=== PATIENT | female | born 1990 | race American Indian/Alaskan Native ===

== ENCOUNTER 2019-04-16 12:01 | Emergency (ER) | payer MEDICAID ==
--- NOTE | 2019-04-16 12:32 | Emergency Department Report ---
Chief Complaint: Abdominal Pain Stated Complaint: ABD PAIN/CRAMPS Time Seen by Provider: 04/16/19 12:27 - HPI History of Present Illness: This is a 29 y.o. F that presents to the ER with abdominal pain x 2 days. LMP 03/09/19 A1 miscarriage Patient is unsure of gestation. 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 - Exam Vital Signs: Vital Signs 04/16/19 12:27 Temperature 98.6 F Pulse Rate 96 H Respiratory 16 Rate Blood Pressure 117/62 [Right] O2 Sat by Pulse 100 Oximetry MSE screening note: Focused history and physical exam performed. Due to findings the following was ordered: ED Disposition for MSE Condition: Stable Instructions: Abdominal Pain (ED)
[2019-04-16 13:16] LABS: Bacteria,Urine 2+ /HPF (Negative); Bilirubin,Urine NEG (Negative); Blood,Urine NEG (Negative); Color,Urine Yellow (Yellow); Mucus,Urine FEW /HPF; Protein,Urine <15 mg/dL mg/dL (Negative); Urobilinogen,Urine < 2.0 mg/dL (<2.0)
--- NOTE | 2019-04-16 15:38 | Emergency Department Report ---
ED Female HPI - General Chief complaint: Abdominal Pain Stated complaint: ABD PAIN/CRAMPS Time Seen by Provider: 04/16/19 12:27 Source: patient Mode of arrival: Ambulatory Limitations: No Limitations - History of Present Illness Initial comments: This is a 29 year old and presents to ED complaining of suprapubic pain 2 days. Patient states that she is about 5 weeks gestation with her last culture. Of 03/09/2019. Patient states she has not been to INSTRUCTIONAL SUPPORT ASSISTANT yet she has not had an appointment. She denies vaginal bleeding, vaginal discharge, dysuria, fever, nausea vomiting. - Related Data Previous Rx's Medication Instructions Recorded Last Taken Type Fluconazole [Diflucan TAB] 150 mg PO ONCE #1 tablet 02/24/16 Unknown Rx Sulfamethoxazole/Trimethoprim 1 each PO BID #20 tablet 02/24/16 Unknown Rx [Bactrim DS TAB] Nitrofurantoin [place]/M-Cryst 100 mg PO Q12HR #14 capsule 04/16/19 Unknown Rx [Macrobid CAP] Allergies Allergy/AdvReac Type Severity Reaction Status Date / Time No Known Allergies Allergy Verified 04/16/19 12:02 ED Review of Systems ROS: Stated complaint: ABD PAIN/CRAMPS Other details as noted in HPI Comment: All other systems reviewed and negative ED Past Medical Hx - Past Medical History Hx Hypertension: No Hx Congestive Heart Failure: No Hx Diabetes: No Hx Deep Vein Thrombosis: No Hx Renal Disease: No Hx Sickle Cell Disease: No Hx Seizures: No Hx Asthma: No Hx COPD: No Hx HIV: No - Surgical History Additional Surgical History: - Social History Smoking Status: Never Smoker Substance Use Type: None - Medications Home Medications: Home Medications Medication Instructions Recorded Confirmed Last Taken Type Fluconazole [Diflucan TAB] 150 mg PO ONCE #1 tablet 02/24/16 Unknown Rx Sulfamethoxazole/Trimethoprim 1 each PO BID #20 tablet 02/24/16 Unknown Rx [Bactrim DS TAB] Nitrofurantoin [place]/M-Cryst 100 mg PO Q12HR #14 capsule 04/16/19 Unknown Rx [Macrobid CAP] ED Physical Exam - General Limitations: No Limitations General appearance: alert, in no apparent distress - Head Head exam: Present: atraumatic, normocephalic - Eye Eye exam: Present: normal appearance - ENT ENT exam: Present: mucous membranes moist - Neck Neck exam: Present: normal inspection - Respiratory Respiratory exam: Present: normal lung sounds bilaterally. Absent: respiratory distress - Cardiovascular Cardiovascular Exam: Present: regular rate, normal rhythm. Absent: systolic murmur, diastolic murmur, rubs, gallop - GI/Abdominal GI/Abdominal exam: Present: soft, normal bowel sounds - Extremities Exam Extremities exam: Present: normal inspection - Back Exam Back exam: Present: normal inspection - Neurological Exam Neurological exam: Present: alert, oriented X3 - Psychiatric Psychiatric exam: Present: normal affect, normal mood - Skin Skin exam: Present: warm, dry, intact, normal color. Absent: rash ED Course Vital Signs 04/16/19 12:27 Temperature 98.6 F Pulse Rate 96 H Respiratory 16 Rate Blood Pressure 117/62 [Right] O2 Sat by Pulse 100 Oximetry ED Medical Decision Making - Radiology Data Radiology results: report reviewed, image reviewed FINDINGS: Uterus: Uterus is enlarged in size and normal and homogeneous in echogenicity without focal fibroid formation. The uterus measures 8.9 x 5.0 x 5.2 cm in size. There is a single early intrauterine gestational sac noted. Intrauterine gestation: There is a single intrauterine gestation identified with only a yolk sac visualized. No pole is identified. Gestational sac diameter average measurement of 1.1 cm corresponds to estimated age 5 weeks 6 days with EDC 12/11/2019. Ovaries: Both ovaries appear normal in size and echogenicity with normal bloodflow bilaterally. The right ovary measures 3.7 x 2.6 x 2.4 cm and the left ovary measures 3.1 x 1.6 x 2.0 cm in size. 2 small cysts in the right ovary are noted measuring up to 1.2 cm. Other: There is no evidence for solid adnexal mass is seen. There is minimal free fluid in the cul-de-sac. IMPRESSION: Single intrauterine gestational with an approximate age of 5 weeks 6 days. No definite pole is noted at this time. This document is electronically signed by Quiana Walsh MD., Apr 16 2019 03:52:20 PM ET Transcribed By: [facility] Dictated By: QUIANA WALSH MD Electronically Authenticated By: QUIANA WALSH MD Signed Date/Time: 04/16/19 1554 - Medical Decision Making 29 y o female presents with suprapubic pain from the UTI Urinalysis is indicative of mild urinary tract infection. Discussed urine urinalysis findings with the patient. ultrasound shows single intrauterine gestation at approximately 5 weeks. Discussed ultrasound results with the patient. Just make sure she takes all antibiotics as prescribed. Discussed follow-up with INSTRUCTIONAL SUPPORT ASSISTANT. Patient states she will make an appointment with her INSTRUCTIONAL SUPPORT ASSISTANT to start care. Critical care attestation.: If time is entered above; I have spent that time in minutes in the direct care of this critically ill patient, excluding procedure time. ED Disposition Clinical Impression: UTI (urinary tract infection) Disposition: TO HOME OR SELFCARE Is pt being admited?: No Does the pt Need Aspirin: No Condition: Stable Instructions: Abdominal Pain (ED), Urinary Tract Infection in Women (ED) Additional Instructions: Make sure to follow up with the primary care physician as discussed. Take all your medications as you've been prescribed. If you have any worsening symptoms or develop new symptoms please return to ED immediately. Prescriptions: Nitrofurantoin [place]/M-Cryst [Macrobid CAP] 100 mg PO Q12HR #14 capsule Referrals: CARMEN THOMPSON MD [Primary Care Provider] - 3-5 Days [facility] [Provider Group] - 3-5 Days Forms: Work/School Release Form(ED) Time of Disposition: 16:17
--- NOTE | 2019-04-16 15:54 | Ultrasound Report ---
PROCEDURE: US OB <= 14 WEEKS FETUS TECHNIQUE: Transabdominal and transvaginal imaging of the pelvis was performed. HISTORY: abdominal pain and LMP 03/09/2019 with estimated age 5 weeks 3 days and EDC 0. Serum beta hCG quantitation is 10,181 correspond to 5-6 weeks age. COMPARISONS: None FINDINGS: Uterus: Uterus is enlarged in size and normal and homogeneous in echogenicity without focal fibroid f ormation. The uterus measures 8.9 x 5.0 x 5.2 cm in size. There is a single early intrauterine gest ational sac noted. Intrauterine gestation: There is a single intrauterine gestation identified with only a yolk sac vis ualized. No pole is identified. Gestational sac diameter average measurement of 1.1 cm correspo nds to estimated age 5 weeks 6 days with EDC 12/11/2019. Ovaries: Both ovaries appear normal in size and echogenicity with normal bloodflow bilaterally. The right ovary measures 3.7 x 2.6 x 2.4 cm and the left ovary measures 3.1 x 1.6 x 2.0 cm in size. 2 s mall cysts in the right ovary are noted measuring up to 1.2 cm. Other: There is no evidence for solid adnexal mass is seen. There is minimal free fluid in the cul -de-sac. IMPRESSION: Single intrauterine gestational with an approximate age of 5 weeks 6 days. No definite pole is noted at this time. This document is electronically signed by Quiana Walsh MD., Apr 16 2019 03:52:20 PM ET
[2019-04-16 16:52] VITALS: BP 115/60
== END 2019-04-16 16:51 | disposition home or self-care (01) ==
LOC: ED 12:01
DX: O98.82 Other maternal infectious and parasitic diseases complicating childbirth (principal); Z79.899 Other long term (current) drug therapy; Z3A.01 Less than 8 weeks gestation of pregnancy
CPT/HCPCS: 36415; 76801; 76817; 81001; 84702; 86900; 86901

== ENCOUNTER 2019-05-09 17:49 | Emergency (ER) | payer MEDICAID ==
--- NOTE | 2019-05-09 18:17 | Emergency Department Report ---
Blank Doc - Documentation Documentation: This is a 29-year-old female that presents with vaginal discharge. This initial assessment/diagnostic orders/clinical plan/treatment(s) is/are subject to change based on patient's health status, clinical progression and re- assessment by fellow clinical providers in the ED. Further treatment and workup at subsequent clinical providers discretion. Patient/guardians urged not to elope from the ED as their condition may be serious if not clinically assessed and managed. Initial orders include: 1- Patient sent to [facility] for further evaluation and treatment 2- UA 3- wet prep/GC swabs
[2019-05-09 19:34] LABS: HCG Qualitative,Urine Positive (Negative)
[2019-05-09 19:36] LABS: Bilirubin,Urine NEG (Negative); Blood,Urine NEG (Negative); Color,Urine Yellow (Yellow); Mucus,Urine FEW /HPF; Protein,Urine <15 mg/dL mg/dL (Negative); Urobilinogen,Urine < 2.0 mg/dL (<2.0)
--- NOTE | 2019-05-09 20:49 | Emergency Department Report ---
ED Female HPI - General Chief complaint: Urogenital-Female Stated complaint: VAG DISCHARGE Time Seen by Provider: 05/09/19 18:18 Source: patient Mode of arrival: Ambulatory Limitations: No Limitations - History of Present Illness Initial comments: Pt is a 29 yo female who presents to the ED with c/o vaginal discharge that began 3 days ago. the patient states she it is white in color. She denies any itching, burning, dysuria, lesions, blisters, abd pain, vaginal bleeding, pelvic pain. she states she is currently 2 months . she states her [employer] is at [employer] and she has had a confirmed IUP by [facility]. she states she has been having unprotected sexual intercourse with her current partner. STD hx: chlamydia 7 years ago which she states she received tx. - Related Data Previous Rx's Medication Instructions Recorded Last Taken Type Fluconazole [Diflucan TAB] 150 mg PO ONCE #1 tablet 02/24/16 Unknown Rx Sulfamethoxazole/Trimethoprim 1 each PO BID #20 tablet 02/24/16 Unknown Rx [Bactrim DS TAB] Nitrofurantoin [place]/M-Cryst 100 mg PO Q12HR #14 capsule 04/16/19 Unknown Rx [Macrobid CAP] Allergies Allergy/AdvReac Type Severity Reaction Status Date / Time No Known Allergies Allergy Verified 05/09/19 17:51 ED Review of Systems ROS: Stated complaint: VAG DISCHARGE Other details as noted in HPI Comment: All other systems reviewed and negative ED Past Medical Hx - Past Medical History Previous Medical History?: No Hx Hypertension: No Hx Congestive Heart Failure: No Hx Diabetes: No Hx Deep Vein Thrombosis: No Hx Renal Disease: No Hx Sickle Cell Disease: No Hx Seizures: No Hx Asthma: No Hx COPD: No Hx HIV: No - Surgical History Additional Surgical History: - Social History Smoking Status: Never Smoker Substance Use Type: None - Medications Home Medications: Home Medications Medication Instructions Recorded Confirmed Last Taken Type Fluconazole [Diflucan TAB] 150 mg PO ONCE #1 tablet 02/24/16 Unknown Rx Sulfamethoxazole/Trimethoprim 1 each PO BID #20 tablet 02/24/16 Unknown Rx [Bactrim DS TAB] Nitrofurantoin [place]/M-Cryst 100 mg PO Q12HR #14 capsule 04/16/19 Unknown Rx [Macrobid CAP] ED Physical Exam - General Limitations: No Limitations General appearance: alert, in no apparent distress - Head Head exam: Present: atraumatic, normocephalic - Eye Eye exam: Present: normal appearance, PERRL - ENT ENT exam: Present: mucous membranes moist - Respiratory Respiratory exam: Present: normal lung sounds bilaterally. Absent: respiratory distress, wheezes, rales, rhonchi, stridor, chest wall tenderness, accessory muscle use, decreased breath sounds, prolonged expiratory - Cardiovascular Cardiovascular Exam: Present: regular rate, normal rhythm, normal heart sounds. Absent: systolic murmur, diastolic murmur, rubs, gallop - GI/Abdominal GI/Abdominal exam: Present: soft, normal bowel sounds, other (gravid). Absent: tenderness, guarding, rebound, rigid - External exam: Present: other (calender let off helper: NAEEM palomino). Absent: erythema, swelling, lesions, lacerations, ecchymosis, bleeding Speculum exam: Present: vaginal discharge (white vaginal discharge), other (c ervical os is closed). Absent: erythema, cervical discharge, vaginal bleeding, foreign body, tissue Bi-manual exam: Present: normal bi-manual exam. Absent: cervical motion t endernes, adnexal tenderness, adnexal mass - Back Exam Back exam: Absent: CVA tenderness (R), CVA tenderness (L) - Neurological Exam Neurological exam: Present: alert, oriented X3 - Psychiatric Psychiatric exam: Present: normal affect, normal mood - Skin Skin exam: Present: warm, dry, intact ED Course Vital Signs 05/09/19 05/09/19 18:10 21:41 Temperature 98.3 F Pulse Rate 83 80 Respiratory 18 20 Rate Blood Pressure 116/60 Blood Pressure 112/62 [Right] O2 Sat by Pulse 100 99 Oximetry ED Medical Decision Making - Lab Data Lab Results 05/09/19 Range/Units 18:22 Urine Color Yellow (Yellow) Urine Turbidity Slightly-cloudy (Clear) Urine pH 5.0 (5.0-7.0) Ur Specific [place] 1.021 (1.003-1.030) Urine Protein <15 mg/dl (Negative) mg/dL Urine Glucose (UA) Neg (Negative) mg/dL Urine Ketones Neg (Negative) mg/dL Urine Blood Neg (Negative) Urine Nitrite Neg (Negative) Ur Reducing Substances Not Reportable Urine Bilirubin Neg (Negative) Urine Ictotest Not Reportable Urine Urobilinogen < 2.0 (<2.0) mg/dL Ur Leukocyte Esterase Mod (Negative) Urine WBC (Auto) 3.0 (0.0-6.0) /HPF Urine RBC (Auto) 1.0 (0.0-6.0) /HPF U Epithel Cells (Auto) 7.0 (0-13.0) /HPF Urine Mucus Few /HPF Urine HCG, Qual Positive A (Negative) - Medical Decision Making Pt is a 29 yo female who presents to the ED with c/o vaginal discharge that began 3 days ago. the patient states she it is white in color. She denies any itching, burning, dysuria, lesions, blisters, abd pain, vaginal bleeding, pelvic pain. she states she is currently 2 months . she states her [employer] is at [employer] and she has had a confirmed IUP by [facility]. she states she has been having unprotected sexual intercourse with her current partner. STD hx: chlamydia 7 years ago which she states she received tx. vitals are normal. no abd tenderness on exam, no CMT, cervical os is closed, pt has clear/white vaginal discharge otherwise normal pelvic examination. UA is normal. wet prep is negative. pt swabbed for G/C discussed she can receive results from test in 1 week by medical records and receive treatment if receive positive test results. advised to follow up with her [employer] in the next 2-3 days. return to the emergency room for any new or worsening symptoms. Critical care attestation.: If time is entered above; I have spent that time in minutes in the direct care of this critically ill patient, excluding procedure time. ED Disposition Clinical Impression: Vaginal discharge Disposition: DC-01 TO HOME OR SELFCARE Is pt being admited?: No Does the pt Need Aspirin: No Condition: Stable Additional Instructions: Please follow up with your [employer] in the next 2-3 days. check back with medical records in one week for the results of your test. return to the emergency room for any new or worsening symptoms. Referrals: ROSALIND WALKER MD [Primary Care Provider] - 2-3 Days your, [employer] [Other] - 2-3 Days Time of Disposition: 21:15 Print Language: PORTUGUESE
[2019-05-09 21:43] VITALS: BP 112/62
== END 2019-05-09 21:41 | disposition home or self-care (01) ==
LOC: ED 17:49
DX: O26.891 Other specified pregnancy related conditions, first trimester (principal); N89.8 Other specified noninflammatory disorders of vagina; Z3A.01 Less than 8 weeks gestation of pregnancy
CPT/HCPCS: 81001; 81025; 87210; 87591; 99284

== ENCOUNTER 2019-06-07 19:21 | Emergency (ER) | payer MEDICAID ==
--- NOTE | 2019-06-07 19:38 | Event Note ---
ED Screening Note ED Screening Note: pt presents with abd cramping pt is currently 12 weeks no vaginal bleeding CITY ASSESSOR: [facility], has seen them and had first US /P:1/A:1 taking a vitamin no V/D no fever no urinary sx no PMHx no allergies to meds non smoker non drinker no drug use This initial assessment/diagnostic orders/clinical plan/treatment(s) is/are subject to change based on patients health status, clinical progression and re- assessment by fellow clinical providers in the ED. Further treatment and workup at subsequent clinical providers discretion. Patient/guardian urged not to elope from the ED as their condition may be serious if not clinically assessed and managed. Initial orders include: labs, UA, US
[2019-06-07 20:18] LABS: Hematocrit 37.5 % (30.3-42.9); Hemoglobin 12.7 gm/dl (10.1-14.3); Mean Corpuscular HGB Conc 34 % (30-34); Mean Corpuscular Hemoglobin 27 pg (28-32); Mean Corpuscular Volume 81 fl (79-97); Platelet Count 286 K/mm3 (140-440); Red Blood Count 4.62 M/mm3 (3.65-5.03); Red Cell Distribution Width 13.9 % (13.2-15.2)
[2019-06-07 20:19] LABS: Bilirubin,Urine NEG (Negative); Blood,Urine NEG (Negative); Color,Urine Yellow (Yellow); Mucus,Urine 1+ /HPF; Protein,Urine <15 mg/dL mg/dL (Negative); Urobilinogen,Urine < 2.0 mg/dL (<2.0)
[2019-06-07 20:36] LABS: BUN/Creatinine Ratio 14; Blood Urea Nitrogen 7 mg/dL (7-17); Calcium 9.5 mg/dL (8.4-10.2); Hemolysis Index 8
--- NOTE | 2019-06-07 21:50 | Ultrasound Report ---
OBSTETRIC ULTRASOUND INDICATION: Maternal gestational hypertension COMPARISON: No prior relevant imaging studies are available for comparison. TECHNIQUE: Transabdominal imaging was performed. FINDINGS: Single viable intrauterine is identified. lie: vertex. Heart rate: 166 bpm. measurements are as follows: Biparietal diameter 2.2 cm, 13 weeks 4 days Femur length 1.0 cm, 12 weeks 6 days Sonographic gestational age is 13 weeks, 3 days Cervix is closed measuring 3.6 cm. There is a hypoechoic area between the placenta and uterus at the fundus. This could be a small subch orionic hemorrhage. Placenta is posterior. There is suggestion of placenta circumvallate. Maternal right ovary is unremarkable. Left ovary is not seen. CONCLUSION: 1. Single viable intrauterine with sonographic gestational age of 13 weeks, 3 days. 2. Posterior placenta has an abnormal architecture which could be seen in the setting of placental ci rcumvallate. Sonographic follow-up is recommended. 3. Crescentic 5 mm hypoechoic focus between the placenta and the uterus could be a small subacute sub chorionic hemorrhage. 4. The cervix is closed measuring 3.6 cm. Signer Name: Cipriano Barr MD Signed: 06/07/2019 9:46 PM Workstation Name: [id number]
[2019-06-07 22:14] LABS: Basophils % (Manual) 0 % (0.0-1.8); Platelet Estimate Consistent w Auto; RBC Morphology Normal; Total Cells Counted 100
--- NOTE | 2019-06-07 22:18 | Emergency Department Report ---
ED Female HPI - General Chief complaint: Abdominal Pain Stated complaint: ABDOMINAL CRAMPS AND HEADACHE Time Seen by Provider: 06/07/19 19:36 Source: patient Mode of arrival: Ambulatory Limitations: No Limitations - Related Data Previous Rx's Medication Instructions Recorded Last Taken Type Fluconazole [Diflucan TAB] 150 mg PO ONCE #1 tablet 02/24/16 Unknown Rx Sulfamethoxazole/Trimethoprim 1 each PO BID #20 tablet 02/24/16 Unknown Rx [Bactrim DS TAB] Nitrofurantoin [place]/M-Cryst 100 mg PO Q12HR #14 capsule 04/16/19 Unknown Rx [Macrobid CAP] Acetaminophen [Acetaminophen TAB] 650 mg PO Q6HR PRN #30 tablet 06/07/19 Unknown Rx Nitrofurantoin [place]/M-Cryst 100 mg PO BID 7 Days #14 capsule 06/07/19 Unknown Rx [Macrobid CAP] Allergies Allergy/AdvReac Type Severity Reaction Status Date / Time No Known Allergies Allergy Verified 05/09/19 17:51 ED Review of Systems ROS: Stated complaint: ABDOMINAL CRAMPS AND HEADACHE Other details as noted in HPI ED Past Medical Hx - Past Medical History Previous Medical History?: No Hx Hypertension: No Hx Congestive Heart Failure: No Hx Diabetes: No Hx Deep Vein Thrombosis: No Hx Renal Disease: No Hx Sickle Cell Disease: No Hx Seizures: No Hx Asthma: No Hx COPD: No Hx HIV: No - Surgical History Past Surgical History?: Yes Additional Surgical History: - Social History Smoking Status: Never Smoker Substance Use Type: None - Medications Home Medications: Home Medications Medication Instructions Recorded Confirmed Last Taken Type Fluconazole [Diflucan TAB] 150 mg PO ONCE #1 tablet 02/24/16 Unknown Rx Sulfamethoxazole/Trimethoprim 1 each PO BID #20 tablet 02/24/16 Unknown Rx [Bactrim DS TAB] Nitrofurantoin [place]/M-Cryst 100 mg PO Q12HR #14 capsule 04/16/19 Unknown Rx [Macrobid CAP] Acetaminophen [Acetaminophen TAB] 650 mg PO Q6HR PRN #30 tablet 06/07/19 Unknown Rx Nitrofurantoin [place]/M-Cryst 100 mg PO BID 7 Days #14 capsule 06/07/19 Unknown Rx [Macrobid CAP] ED Physical Exam - General Limitations: No Limitations ED Course Vital Signs 06/07/19 19:37 Temperature 98.5 F Pulse Rate 99 H Respiratory 16 Rate Blood Pressure 112/71 O2 Sat by Pulse 100 Oximetry ED Medical Decision Making - Lab Data Result diagrams: 06/07/19 20:08 06/07/19 20:08 Labs 06/07/19 06/07/19 06/07/19 19:56 20:08 20:08 WBC 7.1 RBC 4.62 Hgb 12.7 Hct 37.5 MCV 81 MCH 27 L MCHC 34 RDW 13.9 Plt Count 286 Add Manual Diff Complete Total Counted 100 Seg Neuts % (Manual) 81.0 H Band Neutrophils % 0 Lymphocytes % (Manual) 11.0 L Reactive Lymphs % (Man) 0 Monocytes % (Manual) 7.0 Eosinophils % (Manual) 1.0 Basophils % (Manual) 0 Metamyelocytes % 0 Myelocytes % 0 Promyelocytes % 0 Blast Cells % 0 Nucleated RBC % Not Reportable Seg Neutrophils # Man 5.8 Band Neutrophils # 0.0 Lymphocytes # (Manual) 0.8 L Abs React Lymphs (Man) 0.0 Monocytes # (Manual) 0.5 Eosinophils # (Manual) 0.1 Basophils # (Manual) 0.0 Metamyelocytes # 0.0 Myelocytes # 0.0 Promyelocytes # 0.0 Blast Cells # 0.0 WBC Morphology Not Reportable Hypersegmented Neuts Not Reportable Hyposegmented Neuts Not Reportable Hypogranular Neuts Not Reportable Smudge Cells Not Reportable Toxic Granulation Not Reportable Toxic Vacuolation Not Reportable Dohle Bodies Not Reportable Pelger-Huet Anomaly Not Reportable [place] Rods Not Reportable Platelet Estimate Consistent w auto Clumped Platelets Not Reportable Plt Clumps, EDTA Not Reportable Large Platelets Not Reportable Giant Platelets Not Reportable Platelet Satelliting Not Reportable Plt Morphology Comment Not Reportable RBC Morphology Normal Dimorphic RBCs Not Reportable Polychromasia Not Reportable Hypochromasia Not Reportable Poikilocytosis Not Reportable Anisocytosis Not Reportable Microcytosis Not Reportable Macrocytosis Not Reportable Spherocytes Not Reportable Pappenheimer Bodies Not Reportable Sickle Cells Not Reportable Target Cells Not Reportable Tear Drop Cells Not Reportable Ovalocytes Not Reportable Helmet Cells Not Reportable [place] Bodies Not Reportable [place] Rings Not Reportable [place] Cells Not Reportable Bite Cells Not Reportable Crenated Cell Not Reportable Elliptocytes Not Reportable Acanthocytes (Spur) Not Reportable Rouleaux Not Reportable Hemoglobin C Crystals Not Reportable Schistocytes Not Reportable Malaria parasites Not Reportable Shai Bodies Not Reportable Hem Pathologist Commnt No Sodium 136 L Potassium 3.4 L Chloride 100.3 Carbon Dioxide 25 Anion Gap 14 BUN 7 Creatinine 0.5 L Estimated GFR > 60 BUN/Creatinine Ratio 14 Glucose 120 H Calcium 9.5 HCG, Quant Urine Color Yellow Urine Turbidity Cloudy Urine pH 5.0 Ur Specific [place] 1.017 Urine Protein <15 mg/dl Urine Glucose (UA) Neg Urine Ketones Tr Urine Blood Neg Urine Nitrite Neg Urine Bilirubin Neg Urine Urobilinogen < 2.0 Ur Leukocyte Esterase Lg Urine WBC (Auto) 18.0 H Urine RBC (Auto) 7.0 U Epithel Cells (Auto) 29.0 H Urine Mucus 1+ 06/07/19 20:08 WBC RBC Hgb Hct MCV MCH MCHC RDW Plt Count Add Manual Diff Total Counted Seg Neuts % (Manual) Band Neutrophils % Lymphocytes % (Manual) Reactive Lymphs % (Man) Monocytes % (Manual) Eosinophils % (Manual) Basophils % (Manual) Metamyelocytes % Myelocytes % Promyelocytes % Blast Cells % Nucleated RBC % Seg Neutrophils # Man Band Neutrophils # Lymphocytes # (Manual) Abs React Lymphs (Man) Monocytes # (Manual) Eosinophils # (Manual) Basophils # (Manual) Metamyelocytes # Myelocytes # Promyelocytes # Blast Cells # WBC Morphology Hypersegmented Neuts Hyposegmented Neuts Hypogranular Neuts Smudge Cells Toxic Granulation Toxic Vacuolation Dohle Bodies Pelger-Huet Anomaly [place] Rods Platelet Estimate Clumped Platelets Plt Clumps, EDTA Large Platelets Giant Platelets Platelet Satelliting Plt Morphology Comment RBC Morphology Dimorphic RBCs Polychromasia Hypochromasia Poikilocytosis Anisocytosis Microcytosis Macrocytosis Spherocytes Pappenheimer Bodies Sickle Cells Target Cells Tear Drop Cells Ovalocytes Helmet Cells [place] Bodies [place] Rings [place] Cells Bite Cells Crenated Cell Elliptocytes Acanthocytes (Spur) Rouleaux Hemoglobin C Crystals Schistocytes Malaria parasites Shai Bodies Hem Pathologist Commnt Sodium Potassium Chloride Carbon Dioxide Anion Gap BUN Creatinine Estimated GFR BUN/Creatinine Ratio Glucose Calcium HCG, Quant [id number] H Urine Color Urine Turbidity Urine pH Ur Specific [place] Urine Protein Urine Glucose (UA) Urine Ketones Urine Blood Urine Nitrite Urine Bilirubin Urine Urobilinogen Ur Leukocyte Esterase Urine WBC (Auto) Urine RBC (Auto) U Epithel Cells (Auto) Urine Mucus - Radiology Data Radiology results: report reviewed, image reviewed Ordering Physician: MARIIA DODD Date of Service: 06/07/19 Procedure(s): US OB <= 14 weeks fetus Accession Number(s): [id number] cc: MARIIA DODD OBSTETRIC ULTRASOUND INDICATION: Maternal gestational hypertension COMPARISON: No prior relevant imaging studies are available for comparison. TECHNIQUE: Transabdominal imaging was performed. FINDINGS: Single viable intrauterine is identified. lie: vertex. Heart rate: 166 bpm. measurements are as follows: Biparietal diameter 2.2 cm, 13 weeks 4 days Femur length 1.0 cm, 12 weeks 6 days Sonographic gestational age is 13 weeks, 3 days Cervix is closed measuring 3.6 cm. There is a hypoechoic area between the placenta and uterus at the fundus. This could be a small subchorionic hemorrhage. Placenta is posterior. There is suggestion of placenta circumvallate. Maternal right ovary is unremarkable. Left ovary is not seen. CONCLUSION: 1. Single viable intrauterine with sonographic gestational age of 13 weeks, 3 days. 2. Posterior placenta has an abnormal architecture which could be seen in the setting of placental circumvallate. Sonographic follow-up is recommended. 3. [place] 5 mm hypoechoic focus between the placenta and the uterus could be a small subacute subchorionic hemorrhage. 4. The cervix is closed measuring 3.6 cm. Signer Name: Cipriano Barr MD Signed: 06/07/2019 9:46 PM Workstation Name: [id number] Transcribed By: FREDERIC Dictated By: Cipriano Barr MD Electronically Authenticated By: Cipriano Barr MD Signed Date/Time: 06/07/192145 DD/ 38 TD/TT: - Medical Decision Making US: Single viable intrauterine with sonographic gestational age of 13 weeks, 3 days. , [place] 5 mm hypoechoic focus between the placenta and the uterus could be a small subacute subchorionic hemorrhage. , 4. The cervix is closed measuring 3.6 cm. , UA pos leuk, wbc, will tx for ut, will follow up with OBGYN in 2-3, days. Critical care attestation.: If time is entered above; I have spent that time in minutes in the direct care of this critically ill patient, excluding procedure time. ED Disposition Clinical Impression: Abdominal pain during in second trimester, Threatened miscarriage UTI (urinary tract infection) Qualifiers: Urinary tract infection type: acute cystitis Hematuria presence: without hematuria Qualified Code(s): N30.00 - Acute cystitis without hematuria Disposition: TO HOME OR SELFCARE Is pt being admited?: No Does the pt Need Aspirin: No Condition: Stable Instructions: Abdominal Pain in (ED), Threatened Miscarriage (ED), Urinary Tract Infection in Women (ED) Prescriptions: Acetaminophen [Acetaminophen TAB] 650 mg PO Q6HR PRN #30 tablet PRN Reason: Pain Nitrofurantoin [place]/M-Cryst [Macrobid CAP] 100 mg PO BID 7 Days #14 capsule Referrals: DEL CROOK MD [Staff Physician] - 3-5 Days Forms: Work/School Release Form(ED) Time of Disposition: 22:38
[2019-06-07 22:45] VITALS: BP 116/70
== END 2019-06-07 22:44 | disposition home or self-care (01) ==
LOC: ED 19:21
DX: O23.41 Unspecified infection of urinary tract in pregnancy, first trimester (principal); O20.0 Threatened abortion; Z3A.13 13 weeks gestation of pregnancy; Z79.899 Other long term (current) drug therapy
CPT/HCPCS: 36415; 76801; 80048; 81001; 84702; 85007; 85025; 87086; 99284

== ENCOUNTER 2019-09-14 21:54 | Emergency (ER) | payer MEDICAID ==
--- NOTE | 2019-09-14 22:18 | Emergency Department Report ---
Blank Doc - Documentation Documentation: 27 week female c/o of chest pain , sob, for the last 1day. no edema. HR +120 bp? This initial assessment/diagnostic orders/clinical plan/treatment(s) is/are subject to change based on patient's health status, clinical progression and re- assessment by fellow clinical providers in the ED. Further treatment and workup at subsequent clinical providers discretion. Patient/guardians urged not to elope from the ED as their condition may be serious if not clinically assessed and managed. Initial orders include: Main Side labs and dvt evaluation
[2019-09-14 23:51] LABS: Basophils # (Auto) 0.1 K/mm3 (0.0-0.1); Basophils % (Auto) 0.5 % (0.0-1.8); Eosinophils # (Auto) 0.1 K/mm3 (0.0-0.4); Eosinophils % (Auto) 1.1 % (0.0-4.3); Hemoglobin 10.8 gm/dl (10.1-14.3); Lymphocytes # (Auto) 1.3 K/mm3 (1.2-5.4); Lymphocytes % (Auto) 12.5 % (13.4-35.0); Mean Corpuscular HGB Conc 33 % (30-34); Mean Corpuscular Volume 81 fl (79-97); Monocytes # (Auto) 1.2 K/mm3 (0.0-0.8); Monocytes % (Auto) 11.1 % (0.0-7.3); Platelet Count 275 K/mm3 (140-440); Red Blood Count 4.07 M/mm3 (3.65-5.03)
[2019-09-15 00:09] LABS: Alanine Aminotransferase 13 units/L (7-56); Albumin 3.7 g/dL (3.9-5); BUN/Creatinine Ratio 10; Blood Urea Nitrogen 5 mg/dL (7-17); Calcium 8.6 mg/dL (8.4-10.2); Hemolysis Index 1
[2019-09-15] MEDS ORDERED: NACL 0.9% 1000 ML 1,000 ML IV ONE (02:26)
[2019-09-15] MEDS ORDERED: TYLENOL PO ONE (02:27)
[2019-09-15] MEDS ORDERED: ZOFRAN IV ONE (03:04)
[2019-09-15] MEDS ORDERED: ZOFRAN ONE (03:07)
[2019-09-15 03:30] LABS: Bacteria,Urine 4+ /HPF (Negative); Bilirubin,Urine NEG (Negative); Blood,Urine SM (Negative); Color,Urine Yellow (Yellow); Mucus,Urine FEW /HPF; Protein,Urine <15 mg/dL mg/dL (Negative); Urobilinogen,Urine < 2.0 mg/dL (<2.0)
--- NOTE | 2019-09-15 03:41 | Cat Scan Report ---
CTA CHEST WITH IV CONTRAST INDICATION: cp, sob, 27 wks , back pain CONTRAST: 100 cc Omnipaque 350 IV COMPARISON: None available. Three-plane MIP reconstructions were produced. All CT scans at this location are performed using CT d ose reduction for ALARA by means of automated exposure control. FINDINGS: Mild bibasilar atelectatic changes are seen. No areas of consolidation are noted. No pulmon michael nodules or masses are seen. No pneumothorax or pneumomediastinum are noted. No mediastinal or hil ar masses are seen. Visualized portions of the upper abdomen show mild fatty infiltration of the live r. No significant axillary or chest wall abnormalities are seen. Minimal hiatal hernia is noted. Lung mariano are clear. Aorta shows no aneurysmal dilatation or evidence of dissection. Marginal opacification of the pulmonary arterial system was achieved. I do not see obvious evidence o f pulmonary thromboembolism, particularly in the large arteries. IMPRESSION: Suboptimal study but no obvious evidence of pulmonary thromboembolism or other acute abno rmality Signer Name: Reno Elizondo MD Signed: 09/15/2019 3:37 AM Workstation Name: [id number]
--- NOTE | 2019-09-15 03:44 | Emergency Department Report ---
ED General Adult HPI - General Chief complaint: Chest Pain Stated complaint: BACK PAIN,CHEST, HURTS WHEN I BREATH Time Seen by Provider: 09/14/19 22:11 Source: patient Mode of arrival: Ambulatory Limitations: No Limitations - History of Present Illness Initial comments: 29-year-old female presents to the hospital currently 27 weeks complaining of chest pain and back pain that started today. Patient developed right posterior thoracic pain this morning elevated evening developed anterior chest pain. Pain is described as sharp, intermittent, worse with movement, palpation, and inspiration. Patient reports breathing harder since the pain b soraya. She denies cough, fever, calf tenderness, leg edema, history of PE/DVT. 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 No pain reported. Severity scale (0 -10): 9 - Related Data Previous Rx's Medication Instructions Recorded Last Taken Type Fluconazole [Diflucan TAB] 150 mg PO ONCE #1 tablet 02/24/16 Unknown Rx Sulfamethoxazole/Trimethoprim 1 each PO BID #20 tablet 02/24/16 Unknown Rx [Bactrim DS TAB] Nitrofurantoin [place]/M-Cryst 100 mg PO Q12HR #14 capsule 04/16/19 Unknown Rx [Macrobid CAP] Acetaminophen [Acetaminophen TAB] 650 mg PO Q6HR PRN #30 tablet 06/07/19 Unknown Rx Nitrofurantoin [place]/M-Cryst 100 mg PO BID 7 Days #14 capsule 06/07/19 Unknown Rx [Macrobid CAP] Allergies Allergy/AdvReac Type Severity Reaction Status Date / Time No Known Allergies Allergy Verified 09/15/19 04:04 ED Review of Systems ROS: Stated complaint: BACK PAIN,CHEST, HURTS WHEN I BREATH Other details as noted in HPI Comment: All other systems reviewed and negative ED Past Medical Hx - Past Medical History Previous Medical History?: No Hx Hypertension: No Hx Congestive Heart Failure: No Hx Diabetes: No Hx Deep Vein Thrombosis: No Hx Renal Disease: No Hx Sickle Cell Disease: No Hx Seizures: No Hx Asthma: No Hx COPD: No Hx HIV: No - Surgical History Past Surgical History?: Yes Additional Surgical History: - Social History Smoking Status: Never Smoker Substance Use Type: None - Medications Home Medications: Home Medications Medication Instructions Recorded Confirmed Last Taken Type Fluconazole [Diflucan TAB] 150 mg PO ONCE #1 tablet 02/24/16 Unknown Rx Sulfamethoxazole/Trimethoprim 1 each PO BID #20 tablet 02/24/16 Unknown Rx [Bactrim DS TAB] Nitrofurantoin [place]/M-Cryst 100 mg PO Q12HR #14 capsule 04/16/19 Unknown Rx [Macrobid CAP] Acetaminophen [Acetaminophen TAB] 650 mg PO Q6HR PRN #30 tablet 06/07/19 Unknown Rx Nitrofurantoin [place]/M-Cryst 100 mg PO BID 7 Days #14 capsule 06/07/19 Unknown Rx [Macrobid CAP] ED Physical Exam - General Limitations: No Limitations - Other Other exam information: General: No acute distress Head: Atraumatic Eyes: normal appearance ENT: Moist mucous membranes Neck: Normal appearance, no midline tenderness Chest: Clear to auscultation bilaterally, sternal chest tenderness and right pos terior thoracic chest tenderness CV: Tachycardic regular rhythm Abdomen: Soft, normal bowel sounds, nontender, nondistended, no rebound or guarding Back: Normal inspection Extremity: Right thumb clotted subungual hematoma with bruising to nail. No lower extremity edema or calf tenderness Neuro: Alert O x 3, no facial asymmetry, speech clear, no gross motor sensory deficit Psych: Appropriate behavior Skin: No rash ED Course Vital Signs 09/14/19 09/15/19 09/15/19 22:08 02:45 03:10 Temperature 98.5 F 98.4 F Pulse Rate 129 H 120 H Respiratory 18 18 18 Rate Blood Pressure 116/65 111/69 Blood Pressure 111/69 [Left] O2 Sat by Pulse 98 99 Oximetry 09/15/19 09/15/19 09/15/19 03:15 03:30 03:45 Temperature Pulse Rate 119 H 118 H 117 H Respiratory 18 21 20 Rate Blood Pressure 117/68 117/66 107/65 Blood Pressure [Left] O2 Sat by Pulse 100 100 Oximetry 09/15/19 09/15/19 04:10 04:15 Temperature Pulse Rate 111 H Respiratory 18 18 Rate Blood Pressure 105/60 Blood Pressure [Left] O2 Sat by Pulse 99 Oximetry - Reevaluation(s) Reevaluation #1: 09/15/19 04:27 cp improved with tylenol, no longer sob, c/o persistent back pain, hr 114 after 1 L NS, o2 sat 99% on room air - Consultations Consultation #1: 09/15/19 05:04 case d/w Dr Pastor with [facility], not unusual to have resting tachy at this gestation, pt march f/u ED Medical Decision Making - Lab Data Result diagrams: 09/14/19 23:13 09/14/19 23:13 Lab Results 09/14/19 09/14/19 09/15/19 Range/Units 23:13 23:13 01:34 WBC 10.6 (4.5-11.0) K/mm3 RBC 4.07 (3.65-5.03) M/mm3 Hgb 10.8 (10.1-14.3) gm/dl Hct 33.0 (30.3-42.9) % MCV 81 (79-97) fl MCH 27 L (28-32) pg MCHC 33 (30-34) % RDW 14.0 (13.2-15.2) % Plt Count 275 (140-440) K/mm3 Lymph % (Auto) 12.5 L (13.4-35.0) % [place] % (Auto) 11.1 H (0.0-7.3) % Eos % (Auto) 1.1 (0.0-4.3) % Baso % (Auto) 0.5 (0.0-1.8) % Lymph # 1.3 (1.2-5.4) K/mm3 [place] # 1.2 H (0.0-0.8) K/mm3 Eos # 0.1 (0.0-0.4) K/mm3 Baso # 0.1 (0.0-0.1) K/mm3 Seg Neutrophils % 74.8 H (40.0-70.0) % Seg Neutrophils # 8.0 H (1.8-7.7) K/mm3 Sodium 140 (137-145) mmol/L Potassium 4.2 (3.6-5.0) mmol/L Chloride 107.5 H (98-107) mmol/L Carbon Dioxide 21 L (22-30) mmol/L Anion Gap 16 mmol/L BUN 5 L (7-17) mg/dL Creatinine 0.5 L (0.7-1.2) mg/dL Estimated GFR > 60 ml/min BUN/Creatinine Ratio 10 % Glucose 77 (65-100) mg/dL Calcium 8.6 (8.4-10.2) mg/dL Total Bilirubin < 0.20 (0.1-1.2) mg/dL AST 14 (5-40) units/L ALT 13 (7-56) units/L Alkaline Phosphatase 93 (35-129) units/L Total Protein 6.6 (6.3-8.2) g/dL Albumin 3.7 L (3.9-5) g/dL Albumin/Globulin Ratio 1.3 % HCG, Qual Positive (Negative) Urine Color (Yellow) Urine Turbidity (Clear) Urine pH (5.0-7.0) Ur Specific [place] (1.003-1.030) Urine Protein (Negative) mg/dL Urine Glucose (UA) (Negative) mg/dL Urine Ketones (Negative) mg/dL Urine Blood (Negative) Urine Nitrite (Negative) Urine Bilirubin (Negative) Urine Urobilinogen (<2.0) mg/dL Ur Leukocyte Esterase (Negative) Urine WBC (Auto) (0.0-6.0) /HPF Urine RBC (Auto) (0.0-6.0) /HPF U Epithel Cells (Auto) (0-13.0) /HPF Urine Bacteria (Auto) (Negative) /HPF Urine Mucus /HPF 09/15/19 Range/Units 03:01 WBC (4.5-11.0) K/mm3 RBC (3.65-5.03) M/mm3 Hgb (10.1-14.3) gm/dl Hct (30.3-42.9) % MCV (79-97) fl MCH (28-32) pg MCHC (30-34) % RDW (13.2-15.2) % Plt Count (140-440) K/mm3 Lymph % (Auto) (13.4-35.0) % [place] % (Auto) (0.0-7.3) % Eos % (Auto) (0.0-4.3) % Baso % (Auto) (0.0-1.8) % Lymph # (1.2-5.4) K/mm3 [place] # (0.0-0.8) K/mm3 Eos # (0.0-0.4) K/mm3 Baso # (0.0-0.1) K/mm3 Seg Neutrophils % (40.0-70.0) % Seg Neutrophils # (1.8-7.7) K/mm3 Sodium (137-145) mmol/L Potassium (3.6-5.0) mmol/L Chloride (98-107) mmol/L Carbon Dioxide (22-30) mmol/L Anion Gap mmol/L BUN (7-17) mg/dL Creatinine (0.7-1.2) mg/dL Estimated GFR ml/min BUN/Creatinine Ratio % Glucose (65-100) mg/dL Calcium (8.4-10.2) mg/dL Total Bilirubin (0.1-1.2) mg/dL AST (5-40) units/L ALT (7-56) units/L Alkaline Phosphatase (35-129) units/L Total Protein (6.3-8.2) g/dL Albumin (3.9-5) g/dL Albumin/Globulin Ratio % HCG, Qual (Negative) Urine Color Yellow (Yellow) Urine Turbidity Slightly-cloudy (Clear) Urine pH 6.0 (5.0-7.0) Ur Specific [place] 1.008 (1.003-1.030) Urine Protein <15 mg/dl (Negative) mg/dL Urine Glucose (UA) Neg (Negative) mg/dL Urine Ketones Neg (Negative) mg/dL Urine Blood Sm (Negative) Urine Nitrite Neg (Negative) Urine Bilirubin Neg (Negative) Urine Urobilinogen < 2.0 (<2.0) mg/dL Ur Leukocyte Esterase Lg (Negative) Urine WBC (Auto) 5.0 (0.0-6.0) /HPF Urine RBC (Auto) 2.0 (0.0-6.0) /HPF U Epithel Cells (Auto) 6.0 (0-13.0) /HPF Urine Bacteria (Auto) 4+ (Negative) /HPF Urine Mucus Few /HPF - EKG Data -: EKG Interpreted by [facility] EKG shows normal: sinus rhythm, ST-T waves (no stemi) Rate: tachycardia (117) - Radiology Data Radiology results: report reviewed CTA CHEST WITH IV CONTRAST INDICATION: cp, sob, 27 wks , back pain CONTRAST: 100 cc Omnipaque 350 IV COMPARISON: None available. Three-plane MIP reconstructions were produced. All CT scans at this location are performed using CT dose reduction for ALARA by means of automated exposure control. FINDINGS: Mild bibasilar atelectatic changes are seen. No areas of consolidation are noted. No pulmonary nodules or masses are seen. No pneumothorax or pneumomediastinum are noted. No mediastinal or hilar masses are seen. Visualized portions of the upper abdomen show mild fatty infiltration of the liver. No significant axillary or chest wall abnormalities are seen. Minimal hiatal hernia is noted. Lung mariano are clear. Aorta shows no aneurysmal dilatation or evidence of dissection. Marginal opacification of the pulmonary arterial system was achieved. I do not see obvious evidence of pulmonary thromboembolism, particularly in the large arteries. IMPRESSION: Suboptimal study but no obvious evidence of pulmonary thromboembolism or other acute abnormality - Medical Decision Making pt will be d/navi home no PE although says that contrast bolus is suboptimal there are any large central PEs, patient is not hypoxia, or clinical signs of DVT. Heart rates improved some with hydration. Baseline tachycardia suspected to be due to Patient reports to pain improved with Tylenol Outpatient follow-up recommended with [facility] / CEO - Differential Diagnosis embolism, dehydration, costochondritis, dyspnea and , anemia Critical Care Time: No Critical care attestation.: If time is entered above; I have spent that time in minutes in the direct care of this critically ill patient, excluding procedure time. ED Disposition Clinical Impression: Chest wall pain, 27 weeks gestation of Disposition: - TO HOME OR SELFCARE Is pt being admited?: No Does the pt Need Aspirin: No Condition: Stable Instructions: Chest Pain (ED) Additional Instructions: Take Tylenol as needed for pain. Follow-up with your doctor or doctor/clinic provided. Return if symptoms worsen as indicated by your discharge instructions. Referrals: CARMEN THOMPSON MD [Primary Care Provider] - 3-5 Days [facility] [Provider Group] - 3-5 Days Forms: Accompanied Note Time of Disposition: 05:27
[2019-09-15 06:04] VITALS: BP 108/60
== END 2019-09-15 05:55 | disposition home or self-care (01) ==
LOC: ED 21:54
DX: O9A.212 Injury, poisoning and certain other consequences of external causes complicating pregnancy, second trimester (principal); S60.111A Contusion of right thumb with damage to nail, initial encounter; O99.512 Diseases of the respiratory system complicating pregnancy, second trimester; R07.89 Other chest pain; R06.02 Shortness of breath; M54.6 Pain in thoracic spine; Z79.899 Other long term (current) drug therapy; Z3A.27 27 weeks gestation of pregnancy; W45.0XXA Nail entering through skin, initial encounter; Y93.89 Activity, other specified; Y92.89 Other specified places as the place of occurrence of the external cause; Y99.8 Other external cause status
CPT/HCPCS: 36415; 71275; 80053; 81001; 84703; 85025; 93005; 93010; 96374; 99284; J2405; J7030; Q9967

== ENCOUNTER 2019-11-21 17:28 | Outpatient (CLI) | payer MEDICAID ==
[2019-11-21 18:19] VITALS: BP 114/71
[2019-11-21] MEDS ORDERED: LACTATED RINGERS 500 ML IV ONE (18:24)
[2019-11-21] MEDS ORDERED: ONDANSETRON 4 MG/2 ML INJ IM ONE (21:12)
[2019-11-21] MEDS ORDERED: ONDANSETRON 4 MG/2 ML INJ IV ONE (21:36)
[2019-11-21 21:44] LABS: Bilirubin,Urine NEG (Negative); Blood,Urine MOD (Negative); Color,Urine Straw (Yellow); Protein,Urine <15 mg/dL mg/dL (Negative); Urobilinogen,Urine < 2.0 mg/dL (<2.0)
== END 2019-11-21 22:31 | disposition home or self-care (01) ==
LOC: TRG 17:28
PROVIDERS: ATTEND Obstetrics & Gynecology
DX: O21.2 Late vomiting of pregnancy (principal); O62.9 Abnormality of forces of labor, unspecified; O26.893 Other specified pregnancy related conditions, third trimester; M54.5 Low back pain; R10.9 Unspecified abdominal pain; Z3A.36 36 weeks gestation of pregnancy
CPT/HCPCS: 81001; 96374; J2405; J7120

== ENCOUNTER 2022-05-24 14:52 | Emergency (ER) | payer OTHER | END 2022-05-24 15:14 | disposition left against medical advice (07) | LOC: ED 14:52 | DX: R10.9 Unspecified abdominal pain (principal); Z53.21 Procedure and treatment not carried out due to patient leaving prior to being seen by health care provider ==